=== PATIENT | male | born 1990 | race Caucasian/White ===

== ENCOUNTER 2017-05-31 10:53 | Emergency (ER) | payer SELFPAY ==
[2017-05-31 11:22] VITALS: BP 115/74
--- NOTE | 2017-05-31 11:25 | UC ---
Laceration HPI - HPI Summary HPI Summary: Pt presents with laceration to right anterior knee. He tells me that he was at work putting boxes on metal shelves when he hit his right knee on a sharp part of the metal cabinet. Bleeding was stopped with direct pressure. He came directly to . Unsure when last tetanus was. - History Of Current Complaint Chief Complaint: UCLaceration Stated Complaint: KNEE LAS Hx Obtained From: Patient Laceration Location: Knee Mechanism Of Injury: Sharp Trauma Severity: Mild Pain Intensity: 2 Pain Scale Used: 0-10 Numeric Related History: Occupational Injury - Allergies/Home Medications Allergies/Adverse Reactions: Allergies Allergy/AdvReac Type Severity Reaction Status Date / Time No Known Allergies Allergy Verified 05/31/17 11:17 PMH/Surg Hx/FS Hx/Imm Hx Previously Healthy: Yes - Surgical History Surgical History: None - Social History Occupation: Employed Full-time Alcohol Use: Occasionally Substance Use Type: None Smoking Status (MU): Never Smoked Tobacco - Immunization History Most Recent Tetanus Shot: Approx 2014 Review of Systems Constitutional: Negative Skin: Other - Laceration right knee Respiratory: Negative Cardiovascular: Negative Gastrointestinal: Negative Musculoskeletal: Negative Neurological: Negative Psychological: Negative All Other Systems Reviewed And Are Negative: Yes Physical Exam Triage Information Reviewed: Yes Appearance: Well-Appearing, No Pain Distress, Well-Nourished Vital Signs: Initial Vital Signs Temp 97.9 F 05/31/17 11:18 Pulse 68 05/31/17 11:18 Resp 18 05/31/17 11:18 BP 115/74 05/31/17 11:18 Pulse Ox 99 05/31/17 11:18 Vital Signs Reviewed: Yes Neck: Positive: Supple, Nontender Respiratory: Positive: Lungs clear, Normal breath sounds, No respiratory distress Cardiovascular: Positive: RRR, No Murmur, Pulses Normal Musculoskeletal: Positive: Strength Intact - Right LE, ROM Intact - Right LE, Edema @ - Anterior Right knee mild Neurological: Positive: Alert, Other: - Sensations intact right LE Psychological: Positive: Age Appropriate Behavior Skin: Positive: Other - 2.5cm crescent shaped laceration to anterior right knee with some exposed subcutaneous fat. Mild edema. No FB. Laceration Repair - Laceration Repair 1 Description: Linear Laceration Size After Repair: Length (cm) - 2.5 Modified For Repair: No Type Injection: Local Anesthesia Used: 2.0% Lido Irrigation With Pressure Irrigation Device: Yes Closure Material: Sutures Closure Method: Single Layer Suture Of: Skin Suture Type: Nylon Laceration Course/Dx - Course/Dx Course Of Treatment: A time out was performed, witnessed, and signed. The area was irrigated with 150mL sterile saline. 4mL of 2% lidocaine without epi was administered and good anesthetization was achieved. In the usual sterile fashion , FOUR 4-0 and TWO 5-0 nylon sutures were placed. The wound was bandaged with telfa and tegaderm. Pt tolerated procedure well. Tdap updated today. Given the potential for septic bursitis due to an injury like this, I will cover him with Clindamycin. - Differential Dx - Laceration/Wound Provider Diagnoses: Laceration to right knee Discharge - Discharge Plan Condition: Stable Disposition: HOME Prescriptions: Clindamycin HCl 300 mg PO TID #21 capsule Patient Education Materials: Care For Your Stitches (DC), Laceration (DC) Forms: *Work Release Referrals: No Primary Care Phys,NOPCP [Primary Care Provider] - Additional Instructions: If you develop a fever, shortness of breath, chest pain, new or worsening symptoms - please call your PCP or go to the ED. 1) Please keep the area bandaged, clean, dry, and intact for the next 24- 48hours. 2) If you develop a fever, colored or thick discharge, increased pain or swelling - please call your PCP or go to the ED. 3) Please return in 10 days to have your SIX sutures removed.
[2017-05-31] MEDS ORDERED: Lidocaine 2% PF * 5 ML VIAL INJ ONE (11:43)
[2017-05-31] MEDS ORDERED: Tetan/Diph/Pertus SYR(Tdap)* 0.5 ML SYR(BOOSTRIX) use SYR IM ONE (11:49)
== END 2017-05-31 12:35 | disposition home or self-care (01) ==
LOC: UCEAST 10:53
DX: S81.011A Laceration without foreign body, right knee, initial encounter (principal); W26.8XXA Contact with other sharp object(s), not elsewhere classified, initial encounter; Y93.89 Activity, other specified; Y92.9 Unspecified place or not applicable; Y99.0 Civilian activity done for income or pay; Z23 Encounter for immunization
CPT/HCPCS: 12002; 90471; 90715; 96372; 99202; G0463

== ENCOUNTER 2017-06-07 07:31 | Emergency (ER) | payer SELFPAY ==
[2017-06-07 07:46] VITALS: BP 115/66
--- NOTE | 2017-06-07 08:30 | UC ---
HPI Wound/Suture Re-check - HPI Summary HPI Summary: HAD 6 SUTURES PLACED TO RIGHT KNEE HERE IN ON 05/31/17. STATES 3 DAYS LATER 3 STITCHES POPPED OUT. SKIN EDGES STAYED TOGETHER SO PT JUST LET IT HEAL. IS HERE TO GET THE REMAINING 3 STITCHES OUT. - History Of Current Complaint Chief Complaint: UCLaceration Stated Complaint: SUTURE REMOVAL Time Seen by Provider: 06/07/17 08:20 Hx Obtained From: Patient Severity: Mild Pain Intensity: 0 Pain Scale Used: 0-10 Numeric - Allergies/Home Medications Allergies/Adverse Reactions: Allergies Allergy/AdvReac Type Severity Reaction Status Date / Time No Known Allergies Allergy Verified 06/07/17 07:42 PMH/Surg Hx/FS Hx/Imm Hx Previously Healthy: Yes - Surgical History Surgical History: None - Family History Known Family History: Negative: Hypertension - Social History Alcohol Use: Occasionally Substance Use Type: None Smoking Status (MU): Never Smoked Tobacco - Immunization History Most Recent Tetanus Shot: Approx 2014 Review of Systems Constitutional: Negative Skin: Other - LACERATION HEALING WELL. Respiratory: Negative Cardiovascular: Negative Gastrointestinal: Negative All Other Systems Reviewed And Are Negative: Yes Physical Exam Triage Information Reviewed: Yes Appearance: Well-Appearing, No Pain Distress, Well-Nourished Vital Signs: Initial Vital Signs Temp 98.1 F 06/07/17 07:41 Pulse 66 06/07/17 07:41 Resp 18 06/07/17 07:41 BP 115/66 06/07/17 07:41 Pulse Ox 98 06/07/17 07:41 Vital Signs Reviewed: Yes Eyes: Positive: Conjunctiva Clear ENT: Positive: Hearing grossly normal Neck: Positive: Supple Respiratory: Positive: No respiratory distress, No accessory muscle use Cardiovascular: Positive: Pulses Normal Abdomen Description: Positive: Soft Musculoskeletal: Positive: No Edema Neurological: Positive: Alert Psychological: Positive: Age Appropriate Behavior Skin: Positive: Other - LACERATION RIGHT KNEE HEALING WELL. SKIN EDGES WELL APPROXIMATED WITH SOME CRUSTING. NO DRAINAGE. NO SURROUNDING ERYTHEMA. NON TENDER. [address] Course/Dx - Differential Dx - Laceration/Wound Provider Diagnoses: SUTURE REMOVAL RIGHT KNEE Discharge - Discharge Plan Condition: Stable Disposition: HOME Patient Education Materials: Stitches Removal (ED) Referrals: No Primary Care Phys,NOPCP [Primary Care Provider] - Additional Instructions: SEEK FOLLOW-UP IF YOU DEVELOP SPREADING REDNESS OF THE SKIN, PURULENT DRAINAGE, FEVER, INCREASED PAIN OR ANY OTHER CONCERNING SYMPTOMS. AVOID PROLONGED EXPOSURE TO WATER FOR AT LEAST ANOTHER WEEK. DO NOT PICK AT THE [facility]. CALL THE NUMBER BELOW FOR ASSISTANCE IN ESTABLISHING WITH A PCP An additional resource available to assist in finding the appropriate physician for your health care needs is the [facility] ([facility]). You may contact them by calling [phone].
== END 2017-06-07 08:36 | disposition home or self-care (01) ==
LOC: UCEAST 07:31
DX: S81.011D Laceration without foreign body, right knee, subsequent encounter (principal); W45.8XXD Other foreign body or object entering through skin, subsequent encounter
CPT/HCPCS: 99212; G0463

== ENCOUNTER 2018-05-01 12:20 | Emergency (ER) | payer OTHER ==
[2018-05-01 12:44] VITALS: BP 144/62
[2018-05-01] MEDS ORDERED: Lidocaine 1% MPF* 2 ML VIAL INJ ONE (12:51)
--- NOTE | 2018-05-01 12:51 | UC ---
UC General HPI - HPI Summary HPI Summary: L EAR PAIN AND NASAL CONGESTION X 2 DAYS. AREA ON L EAR IS SWOLLEN. NO INJURY. - History of Current Complaint Chief Complaint: UCEar Stated Complaint: LT EAR PAIN Time Seen by Provider: 05/01/18 12:45 Hx Obtained From: Patient Onset/Duration: Gradual Onset Timing: Constant Pain Intensity: 4 Associated Signs & Symptoms: Negative: Fever, Headache - Allergy/Home Medications Allergies/Adverse Reactions: Allergies Allergy/AdvReac Type Severity Reaction Status Date / Time No Known Allergies Allergy Verified 05/01/18 12:42 PMH/Surg Hx/FS Hx/Imm Hx Previously Healthy: Yes - Surgical History Surgical History: None - Family History Known Family History: Negative: Hypertension - Social History Alcohol Use: Occasionally Substance Use Type: None Smoking Status (MU): Never Smoked Tobacco - Immunization History Most Recent Tetanus Shot: Approx 2014 Review of Systems All Other Systems Reviewed And Are Negative: Yes Constitutional: Negative: Fever Skin: Positive: Rash - L EAR Eyes: Positive: Negative Respiratory: Positive: Negative Cardiovascular: Positive: Negative Gastrointestinal: Positive: Negative Genitourinary: Positive: Negative Motor: Positive: Negative Neurovascular: Positive: Negative Musculoskeletal: Positive: Negative Neurological: Positive: Negative Psychological: Positive: Negative Physical Exam Triage Information Reviewed: Yes Appearance: Well-Appearing Vital Signs: Initial Vital Signs Temp 97.8 F 05/01/18 12:42 Pulse 84 05/01/18 12:42 Resp 16 05/01/18 12:42 BP 144/62 05/01/18 12:42 Pulse Ox 99 05/01/18 12:42 Vital Signs Reviewed: Yes Eyes: Positive: Conjunctiva Clear ENT: Positive: Pharynx normal, Other - L PREAURICULAR ADENOPATHY. L AURICLE WITH MILD ERYTHEMA. BOTTOM OF INNER AURICLE HAS A 0.5CM FLUCTUANT TENDER AREA WITH A CENTRAL BLACKHEAD. CANAL CLEAR ON R, L WITH MILD ERYTHEMA/SWELLING... Negative: Nasal congestion, Nasal drainage Neck: Positive: Supple, Nontender, No Lymphadenopathy Respiratory: Positive: Lungs clear, Normal breath sounds Cardiovascular: Positive: RRR, No Murmur Abdomen Description: Positive: Nontender, No Organomegaly, Soft Bowel Sounds: Positive: Present Musculoskeletal: Positive: ROM Intact Neurological: Positive: Alert Psychological: Positive: Age Appropriate Behavior Skin Exam: Normal Course/Dx - Course Course Of Treatment: PROCEDURE: Time out done. site prep betadine. local with 30G needle. Superficial stab to abscess. Only scant drainage. Area clensed, dried and covered with topical antibiotic. sterile technique used. pt tolerated well. only scant bleeding. No pcp thus will refer to ENT. Pt requesting Dr larsen. - Diagnoses Provider Diagnosis: Cellulitis of left ear, Abscess of left external ear Discharge - Sign-Out/Discharge Documenting (check all that apply): Patient Departure All imaging exams completed and their final reports reviewed: No Studies - Discharge Plan Condition: Stable Disposition: HOME Prescriptions: Cephalexin CAP* [Keflex CAP*] 500 mg PO TID 10 Days #30 cap Neomyc/Polym/HC 1% OTIC SUSP* [Cortisporin Otic Susp 1%*] 4 drop LEFT EAR TID 7 Days #1 btl Patient Education Materials: Cellulitis (DC), Abscess (ED) Forms: *Work Release Referrals: Guille Larsen MD [Medical Doctor] - 2 Days Additional Instructions: CALL TODAY TO BE SEEN IN 2 DAYS. RECHECK SOONER FOR ANY WORSENING. - Billing Disposition and Condition Condition: STABLE Disposition: Home - Attestation Statements Provider Attestation: Per institutional requirements, I have reviewed the chart, however, I was not consulted specifically or made aware of this patient by the midlevel provider. I did not personally evaluate, interact with , or disposition this patient.
== END 2018-05-01 13:20 | disposition home or self-care (01) ==
LOC: UCCORT 12:20
DX: H60.12 Cellulitis of left external ear (principal); H60.02 Abscess of left external ear; R09.81 Nasal congestion
CPT/HCPCS: 69000; 99212; G0463

== ENCOUNTER 2018-12-14 10:50 | Emergency (ER) | payer OTHER ==
[2018-12-14 11:34] VITALS: BP 103/59
--- NOTE | 2018-12-14 12:30 | UC ---
Skin Complaint HPI - HPI Summary HPI Summary: Pt presents with c/o right hand swelling and left calf swelling. 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 right hand swelling has spread to mid right forearm. Hand and posterior left calf is erythematous and warm to touch. Pt took 50 mg benadryl PO last evening. Pt denies difficulty breathing, denies lip or tongue swelling. - History of Current Complaint Chief Complaint: UCSkin Time Seen by Provider: 12/14/18 11:59 Stated Complaint: RIGHT HAND BEE STING Hx Obtained From: Patient Onset/Duration: Gradual Onset, Lasting Days, Still Present, Worse Since - onset Skin Exposure Onset/Duration: Hours Ago - 24 Timing: Constant Onset Severity: Mild Current Severity: Moderate Pain Intensity: 3 Location: Discrete - right hand and left posterior calf Character: Swelling, Redness, Painful Aggravating Factor(s): Touch Alleviating Factor(s): Nothing Associated Signs & Symptoms: Positive: Tenderness Related History: Insect Bite/Sting - Allergy/Home Medications Allergies/Adverse Reactions: Allergies Allergy/AdvReac Type Severity Reaction Status Date / Time No Known Allergies Allergy Verified 12/14/18 11:26 Home Medications: Home Medications diPHENhydraMINE PO* [Benadryl PO 25 MG TAB*] 50 mg PO Q6H PRN 12/14/18 [History Confirmed 12/14/18] PMH/Surg Hx/FS Hx/Imm Hx Previously Healthy: Yes - Surgical History Surgical History: None - Family History Known Family History: Negative: Hypertension - Social History Occupation: Employed Full-time Lives: With Family Alcohol Use: Occasionally Substance Use Type: None Smoking Status (MU): Never Smoked Tobacco Have You Smoked in the Last Year: No - Immunization History Most Recent Tetanus Shot: Approx 2014 Vaccination Up to Date: Yes Review of Systems All Other Systems Reviewed And Are Negative: Yes Constitutional: Positive: Negative Skin: Positive: Other - swelling, erythema, right hand and forearm, posterior left calf. Eyes: Positive: Negative ENT: Positive: Negative Respiratory: Positive: Negative Cardiovascular: Positive: Negative Gastrointestinal: Positive: Negative Genitourinary: Positive: Negative Motor: Positive: Decreased ROM - right hand swelling Neurovascular: Positive: Negative Musculoskeletal: Positive: Decreased ROM - right hand, Edema - right hand and forearm Neurological: Positive: Negative Psychological: Positive: Negative Is Patient Immunocompromised?: No Physical Exam Triage Information Reviewed: Yes Appearance: Well-Appearing Vital Signs: Initial Vital Signs Temp 97.8 F 12/14/18 11:28 Pulse 56 12/14/18 11:28 Resp 16 12/14/18 11:28 BP 103/59 12/14/18 11:28 Pulse Ox 100 12/14/18 11:28 Vital Signs Reviewed: Yes Eye Exam: Normal ENT Exam: Normal ENT: Positive: Hearing grossly normal Dental Exam: Normal Neck exam: Normal Respiratory Exam: Normal Respiratory: Positive: No respiratory distress Cardiovascular Exam: Normal Musculoskeletal: Positive: ROM Limited @ - right hand secondary to swelling, Edema @ - right hand and forearm Neurological Exam: Normal Psychological Exam: Normal Skin Exam: Other - mild erythema to right hand and posterior left calf Course/Dx - Differential Diagnoses - Skin Complaint Differential Diagnoses: Cellulitis, Urticaria - Diagnoses Provider Diagnosis: Insect bite, Allergic reaction to bee sting Discharge ED - Sign-Out/Discharge Documenting (check all that apply): Patient Departure All imaging exams completed and their final reports reviewed: No Studies - Discharge Plan Condition: Stable Disposition: HOME Prescriptions: Cetirizine* [ZyrTEC 10 MG TAB*] 10 mg PO DAILY #7 tab predniSONE TAB* [Deltasone 10 MG TAB*] 30 mg PO DAILY #12 tab Patient Education Materials: Insect Bite or Sting (ED) Referrals: [facility] [place] [facility] [Outside] - If Needed No Primary Care Phys,NOPCP [Primary Care Provider] - - Billing Disposition and Condition Condition: STABLE Disposition: Home
== END 2018-12-14 12:39 | disposition home or self-care (01) ==
LOC: UCCORT 10:50
DX: T63.441A Toxic effect of venom of bees, accidental (unintentional), initial encounter (principal); M79.89 Other specified soft tissue disorders; Y92.9 Unspecified place or not applicable
CPT/HCPCS: 99212; G0463